=== PATIENT | male | born 1940 | race Caucasian/White ===

== ENCOUNTER 2020-04-23 19:42 | Observation (INO) ==
[2020-04-23] MEDS ORDERED: ALBUTEROL SULFATE/IPRATROPIUM 3 ML NEBU IH ONE ×4 (19:52→21:19)
[2020-04-23] MEDS ORDERED: DEXAMETHASONE SODIUM PHOSP/PF 10 MG/ML VIAL IV ONE (19:55)
--- NOTE | 2020-04-23 20:03 | ERNOTE ---
Dyspnea - Date Date of Service: 04/23/20 - General Presenting Symptoms: shortness of breath, wheezing Time Seen by Provider: 04/23/20 19:50 Source: patient, other - Patient is a poor historian and hard of hearing Exam Limitations: no limitations - Immun/Allergies/Home Medications Immunizations: IMMUNIZATION HX Immunizations Up to Date Yes History of Influenza Vaccine Yes Hx Pneumococcal Vaccination No Allergies/Adverse Reactions: Allergies hydrocodone bitartrate [From Vicodin] Allergy (Severe, Verified 04/23/20 20:38) Anaphylaxis tramadol Allergy (Verified 04/23/20 20:38) Home Medications: HOME MEDICATIONS Albuterol Sulfate [Proair Hfa] 2 inh INHALATION Q4H PRN 04/03/13 [Last Taken Unknown] Omeprazole [Prilosec] 40 mg PO DAILY #30 capsule. 04/04/13 [Last Taken Unknown ] Acetaminophen [Tylenol] 1,000 mg PO Q4H PRN 11/25/19 [Last Taken Unknown] Amlodipine Besylate 10 mg PO DAILY 11/25/19 [Last Taken Unknown] Atorvastatin Calcium 40 mg PO DAILY 11/25/19 [Last Taken Unknown] Escitalopram Oxalate 10 mg PO DAILY 11/25/19 [Last Taken Unknown] Finasteride [Proscar] 5 mg PO DAILY 11/25/19 [Last Taken Unknown] Fluticasone Propion/Salmeterol [Wixela 250-50 Inhub] 1 ea INHALATION BID 11/25/19 [Last Taken Unknown] Glimepiride 4 mg PO BID 11/25/19 [Last Taken Unknown] Tamsulosin HCl 0.4 mg PO DAILY 11/25/19 [Last Taken Unknown] Tiotropium [place] [Spiriva] 1 cap INHALATION DAILY 11/25/19 [Last Taken Unknown] sitaGLIPtin PHOSPHATE [Januvia] 100 mg PO DAILY 11/25/19 [Last Taken Unknown] Clopidogrel 75 mg PO DAILY 12/16/19 [Last Taken Unknown] Wixela 500-50 Inhub INH BID 12/16/19 [Last Taken Unknown] - History of Present Illness Narrative: 79-year-old male complaining of shortness of breath difficulty breathing is been ongoing for several months especially the past month it has been worse cough nonproductive the last 2 to 3 days he says he has had a fever with chills his is treated his called him off at night he has not been seen by his medical doctor He is very difficult to get a medical history from he is very hard of hearing on arrival his pulse ox was 88 to 90% Date (Duration): 04/23/20 Time (Timing): 19:58 Severity: moderate Treatment AIRPORT UTILITY WORKER: albuterol Initiating event: Reports: upper resp illness Frequency of episodes: Reports: frequent episodes Modifying Factors - (Improves): Reports: other - Unknown Modifying Factors (Worsens): Reports: other - Unknown Associated Symptoms-Dyspnea: Reports: fever/chills, sweating, cough, wheezing Review of Systems - Review of Systems Constitutional: Present: fever, chills EYE: Present: no symptoms reported ENT: Present: no symptoms reported, other - Hard of hearing Respiratory: Present: shortness of breath, cough, wheezing Cardiology: Present: no symptoms reported Gastrointestinal/Abdominal: Present: no symptoms reported Genitourinary: Present: no symptoms reported Musculoskeletal: Present: no symptoms reported Skin: Present: no symptoms reported Neurological: Present: no symptoms reported Endocrine: Present: no symptoms reported Hematologic/Lymphatic: Present: no symptoms reported Psych: Present: no symptoms reported All Other Systems: All systems neg except as marked Medical History (Last Reviewed 04/23/20 @ 20:00 by Raleigh Jacob MD) COPD (chronic obstructive pulmonary disease) HTN (hypertension) Heart attack Stroke Type 2 diabetes mellitus Surgical History: Surgical History (Last Reviewed 04/23/20 @ 20:00 by Raleigh Jacob MD) H/O hernia repair Family History: Family History (Last Reviewed 12/19/19 @ 13:14 by Lisseth Velez DNP) Father Myocardial infarction Mother Breast cancer Social History: (Last Updated 12/19/19 @ 13:14 by Lisseth Velez DNP) Social History: Marital status: current occupational status: retired Tobacco: Smoking Status: Former smoker Alcohol: alcohol intake: former Substance Use: substance use type: does not use Dietary Habits: caffeine: Yes Type: coffee, tea Exercise: Physical activity type: walking Physical Exam - Physical Exam General Appearance: Present: wd/wn, alert, moderate distress, obese Head Exam: Present: normal inspection Eye Exam: Normal inspection: bilateral Ears, Nose, Throat: Present: normal ENT inspection, dry mucous membranes Neck: Present: normal inspection Respiratory: Present: respiratory distress, rhonchi, wheezing Cardiovascular/Chest: Present: regular rate, rhythm Gastrointestinal/Abdominal: Present: normal bowel sounds, nontender Back Exam: Present: normal inspection, normal range of motion Extremity Exam: Present: normal inspection Neurological Exam: Present: alert, oriented Skin Exam: Present: normal color, warm/dry Lymphatic Exam: Present: no adenopathy Progress - Results and Orders Patient's Lab Results:: I have reviewed the patient's lab results. Results and Orders: Laboratory Tests 04/23/20 20:15 WBC 6.7 RBC 4.46 L Hgb 14.2 Hct 42.3 MCV 94.8 MCH 31.8 H Plt Count 149 L Neutrophils % 75.5 H Lymphocytes % 11.5 L Laboratory Tests 04/23/20 20:15 Lactic Acid, Venous 0.8 Laboratory Tests 04/23/20 04/23/20 04/23/20 18:24 20:15 20:15 Sodium 138 Potassium 4.8 H Chloride 104 Carbon Dioxide 24.6 Anion Gap 14.2 H BUN 37 H Creatinine 2.28 H D Est GFR (Non-Af Amer) 30 L D BUN/Creatinine Ratio 16.2 Random Glucose 184 H Lactic Acid, Venous 0.8 Calcium 8.6 Calcium Adj for Albumin 8.7 Total Bilirubin 0.4 AST 15 ALT 24 Alkaline Phosphatase 58 Troponin I 0.030 B-Natriuretic Peptide 552 Total Protein 6.4 Albumin 3.5 Influenza Type A Ag Negative Influenza Type B Ag Negative Laboratory Tests 04/23/20 20:58 pCO2 41.0 pO2 31.7 L* HCO3 22.7 Total CO2 24.0 Base Excess -2.6 L ABG pH 7.36 ABG O2 Sat (Measured) 58.5 L Laboratory Tests 04/23/20 18:23 SARS-CoV-2 (PCR) Not detected - Vital Signs Vital Signs: Vital Signs 04/23/20 19:42 Temperature 37.2 C Pulse Rate 81 Respiratory Rate 22 H Blood Pressure 159/82 H O2 Sat by Pulse Oximetry 89 L - EKG EKG #1 EKG: NSR EKG read: Interp. by la EKG Comments: EKG sinus rhythm with APCs right bundle branch block possible anterior myocardial infarct of indeterminate age no acute changes from 11/25/2019 - X-Ray X-Ray #1 X-Ray: chest Interpretation: Interp. by me X-ray Comments: No acute infiltrate or disease when compared to to prior chest x-ray - Progress/Reassessment Chief Complaint: Dyspnea Progress Note-Subjective: 04/23/20 21:15 recheck patient feeling much better also clearer that earlier, sats running anywhere from 91-94, his blood pressure was 1 42/74 we tried backing him off his oxygen to 0 L/min and he dropped his sats into the low 80s so we continued back at 2 L ,we will be giving him another treatment Plan - Plan Plan: Patient doing better but when O2 was taken off he dropped his sats in the mid 80s is decided to admit to the hospital observation Dr. Guerrero accepted and admitted Departure Clinical Impression: Asthma exacerbation in COPD - Departure Disposition: Short Term Hospital Inpatient Condition: Stable Additional Instructions: Admit to the hospital for observation Referrals: Manjinder Mojica MD [Primary Care Provider] -
[2020-04-23 20:33] LABS: Hematocrit 42.3 % (42.0-52.0); Hemoglobin 14.2 gm/dL (13.5-18.0); Mean Cell Volume 94.8 fl (78-100); Mean Corpuscular Hemoglobin 31.8 pg (27-31); Mean Corpuscular Hgb Conc 33.6 g/dl (32-36); Mean Platelet Volume 10.1 fl (8-11.3); Neutrophil % 75.5 % (42-75.0); Platelet Count 149 K/mm3 (150-450); Red Blood Count 4.46 M/mm3 (4.7-6.0); Red Cell Distribution Width 12.6 % (11.5-14.0); White Blood Count 6.7 K/mm3 (4.0-10.5)
[2020-04-23 20:47] LABS: Troponin I 0.03 ng/mL (0.00-0.10)
[2020-04-23 20:48] LABS: Albumin * 3.5 gm/dl (3.4-5.0); Anion Gap 14.2 mmol/L (6.8-13.8); BUN/Creatinine Ratio 16.2 (9.0-21.6); Bilirubin, Total 0.4 mg/dL (0.0-1.1); CRP 1.3 mg/dL (0.0-0.9); Ca. Corrected For Albumin 8.7 mg/dL (8.4-10.2); Calcium * 8.6 mg/dL (7.9-10.9); Carbon Dioxide 24.6 mmol/L (24-32.6); Potassium 4.8 mmol/L (3.4-4.6); Total Protein 6.4 gm/dL (6.2-8.2)
[2020-04-23] MEDS: ALBUTEROL SULFATE/IPRATROPIUM 3 ML NEBU IH SCH (22:43)
[2020-04-24] MEDS: ALBUTEROL SULFATE/IPRATROPIUM 3 ML NEBU IH SCH ×5 (02:27→18:22)
[2020-04-24] MEDS ORDERED: ACETAMINOPHEN 500 MG TABLET PO PRN (09:01)
[2020-04-24] MEDS ORDERED: sitaGLIPtin PHOSPHATE 50 MG TABLET PO SCH (09:15)
[2020-04-24] MEDS ORDERED: FLUTICASONE PROPION/SALMETEROL 14 PUFF DISK.W.DEV IH SCH (09:15)
[2020-04-24] MEDS ORDERED: CLOPIDOGREL BISULFATE 75 MG TABLET PO SCH (09:15)
[2020-04-24] MEDS ORDERED: FINASTERIDE 5 MG TABLET PO SCH (09:15)
[2020-04-24] MEDS ORDERED: ESCITALOPRAM OXALATE 10 MG TAB PO SCH (09:15)
[2020-04-24] MEDS ORDERED: amLODIPine BESYLATE 10 MG TABLET PO SCH (09:15)
[2020-04-24] MEDS ORDERED: ENOXAPARIN SODIUM 30 MG/0.3 ML SYRG SC SCH (09:15)
[2020-04-24] MEDS ORDERED: TIOTROPIUM BROMIDE 5 CAP INHALER IH SCH (09:15)
[2020-04-24] MEDS ORDERED: CLOPIDOGREL 75 MG PO SCH (09:15)
[2020-04-24] MEDS ORDERED: GLIMEPIRIDE 4 MG TABLET PO SCH (09:15)
[2020-04-24] MEDS ORDERED: guaiFENesin 100 MG/5 ML SYRUP PO PRN (09:21)
[2020-04-24] MEDS ORDERED: AZITHROMYCIN 250 MG TABLET PO ONE (09:31)
--- NOTE | 2020-04-24 09:31 | HP ---
Chief Complaint - Chief Complaint Date of Service: 04/24/20 Time of Service: 09:22 Chief Complaint: I have shortness of breath and cough. History of Present Illness: 79-year-old male with past medical history of type 2 diabetes, CAD w ith SC, CKD 3, hypertension, obesity, COPD, former smoker, was evaluated in the ER for worsening shortness of breath accompanied by cough that has been progressively getting worse over the past month. Patient reports he normally uses supplemental oxygen at 3 L at home and multiple inhalers prescribed by his doctor but he is breathing has not been improving with his usual treatments. Patient denies any fever or chills but says he has a horrible dry cough. 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 While in the ER labs revealed a positive d-dimer however the patient was negative for any tachycardia or chest pain, his EKG was also negative for any concerning findings. The patient has a history of chronic kidney disease which is known to cause an elevated d-dimer on labs so it is evident that this might be the explanation for the elevated d-dimer. We will continue to monitor him closely and keep him on telemetry. Medical History (Last Reviewed 04/23/20 @ 22:33 by Vicki Lin RN) COPD (chronic obstructive pulmonary disease) HTN (hypertension) Heart attack Stroke Type 2 diabetes mellitus Surgical History: Surgical History (Last Reviewed 04/23/20 @ 22:33 by Vicki Lin RN) H/O hernia repair Family History: Family History (Last Reviewed 04/23/20 @ 22:33 by Vicki Lin RN) Father Myocardial infarction Mother Breast cancer Social History: (Last Reviewed 04/23/20 @ 22:33 by Vicki Lin RN) Social History: Marital status: current occupational status: retired Tobacco: Smoking Status: Former smoker Alcohol: alcohol intake: former Substance Use: substance use type: does not use Dietary Habits: caffeine: Yes Type: coffee, tea Exercise: Physical activity type: walking Peds Patient Hx - Developmental: No Pertinent Hx Peds Patient Hx - Medical: No Pertinent Hx Peds Patient Hx - Cardiac/Respiratory: No Pertinent Hx Peds Patient Hx - Surgical: No Surgical History Patient History - Cancer: No Hx of Cancer Review Of Systems (GEN) - Review of Systems Generalized/Overall Review: Present: No Symptoms Reported EENTM: Present: No Symptoms Reported Respiratory: Present: Cough, Shortness of Breath Cardiac: Present: No Symptoms Reported Abdominal: Present: No Symptoms Reported Genitourinary: Present: No Symptoms Reported Musculoskeletal: Present: No Symptoms Reported Neurological: Present: No Symptoms Reported Skin: Present: No Symptoms Reported Endocrine: Present: No Symptoms Reported Immunizations: IMMUNIZATION HX Immunizations Up to Date Yes History of Influenza Vaccine Yes Hx Pneumococcal Vaccination No Allergies/Adverse Reactions: Allergies Allergy/AdvReac Type Severity Reaction Status Date / Time hydrocodone bitartrate Allergy Severe Anaphylaxis Verified 04/23/20 20:38 [From Vicodin] tramadol Allergy Verified 04/23/20 20:38 Home Medications: HOME MEDICATIONS Wixela 500-50 Inhub INH BID 12/16/19 [Last Taken Unknown] Albuterol Sulfate [Proventil Hfa] 6.7 gm INHALATION QID PRN 04/24/20 [Last Taken Unknown] Albuterol Sulfate [Ventolin HFA] 2 puff INHALATION QID 04/24/20 [Last Taken Unknown] Atorvastatin Calcium 40 mg PO DAILY 04/24/20 [Last Taken Unknown] Clopidogrel Bisulfate [Plavix] 75 mg PO DAILY 04/24/20 [Last Taken Unknown] Escitalopram Oxalate 10 mg PO DAILY 04/24/20 [Last Taken Unknown] Finasteride [Proscar] 5 mg PO DAILY 04/24/20 [Last Taken Unknown] Fluticasone Propion/Salmeterol [Wixela 500-50 Inhub] 1 puff INHALATION BID 04/24/20 [Last Taken Unknown] Glimepiride 4 mg PO BID 04/24/20 [Last Taken Unknown] Tamsulosin HCl 0.4 mg PO DAILY 04/24/20 [Last Taken Unknown] Tiotropium [place] [Spiriva Respimat 1.25 mcg/inhalation] 4 gm INHALATION DAILY 04/24/20 [Last Taken Unknown] Exam - Exam Vital Signs: Vital Signs - Last Taken Temp 36.2 C 04/24/20 06:00 Pulse 67 04/24/20 06:10 Resp 18 04/24/20 06:10 BP 170/83 H 04/24/20 07:10 Pulse Ox 93 04/24/20 08:10 Constitutional: Present: Alert, Oriented x3, Cooperative, Well developed, Well nourished, No distress, Elderly ENT Exam: Present: normal ENT inspection, hard of hearing Eye Exam: bilateral eye: normal inspection, PERRL, EOMI Neck: Present: non-tender, full range of motion, supple, normal inspection, trachea midline Back Exam: Present: normal inspection, no CVA tenderness, no vertebral tenderness Respiratory: Present: chest non-tender, lungs clear, no respiratory distress, no accessory muscle use, decreased breath sounds - Decreased lung sounds at bases bilaterally. Cardiovascular/Chest: Present: normal peripheral pulses, regular rate, rhythm, no chest tenderness, no edema, no gallop, no JVD, no murmur, no rub Peripheral Pulses: dorsalis-pedis (R): 3+, dorsalis-pedis (L): 3+ Abdomen: Present: Normal bowel sounds, soft, nontender, nondistended, no rebound tenderness, no hepatospenomegaly, no masses, obese /Rectal: Present: Exam deferred Extremity: Present: normal range of motion, non-tender, normal inspection, no pedal edema, no calf tenderness, normal capillary refill Skin Exam: Present: normal color, warm/dry, no cyanosis Lymphatic: Present: no adenopathy Neurologic: Present: 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, normal cerebellar test, no motor/sensory deficits, alert, normal mood/affect, oriented x 3 Appearance: Present: appropriate appearance, appropriate insight, neat, no memory impairment Eye contact: Present: cooperative, good eye contact, normal speech Thoughts: Present: normal thought pattern, no apparent hallucination Diagnostic Studies: Abnormal Lab Results 04/23/20 04/23/20 04/23/20 Range/Units 20:15 20:15 20:15 RBC 4.46 L (4.7-6.0) M/mm3 MCH 31.8 H (27-31) pg Plt Count 149 L (150-450) K/mm3 Immature Gran % (Auto) 0.60 H (0.001-0.429) % Immature Gran # (Auto) 0.04 H (0.000-0.0310) K/mm3 Neutrophils % 75.5 H (42-75.0) % Lymphocytes % 11.5 L (20-51) % Monocytes % 9.3 H (0.0-9) % Lymphocytes # 0.77 L (1.5-3.5) k/mm3 D-Dimer 1.38 H (0.19-0.49) ug/mL pO2 (83.0-108.0) mmHg Base Excess (-2.0-3.0) mmol/L ABG O2 Sat (Measured) (94.0-98.0) % Potassium 4.8 H (3.4-4.6) mmol/L Anion Gap 14.2 H (6.8-13.8) mmol/L BUN 37 H (6-23) mg/dL Creatinine 2.28 H D (0.4-1.4) mg/dL Est GFR (Non-Af Amer) 30 L D (60-130) mL/min Random Glucose 184 H (70-110) mg/dL C-Reactive Prot, Quant 1.3 H (0.0-0.9) mg/dL 04/23/20 Range/Units 20:58 RBC (4.7-6.0) M/mm3 MCH (27-31) pg Plt Count (150-450) K/mm3 Immature Gran % (Auto) (0.001-0.429) % Immature Gran # (Auto) (0.000-0.0310) K/mm3 Neutrophils % (42-75.0) % Lymphocytes % (20-51) % Monocytes % (0.0-9) % Lymphocytes # (1.5-3.5) k/mm3 D-Dimer (0.19-0.49) ug/mL pO2 31.7 L* (83.0-108.0) mmHg Base Excess -2.6 L (-2.0-3.0) mmol/L ABG O2 Sat (Measured) 58.5 L (94.0-98.0) % Potassium (3.4-4.6) mmol/L Anion Gap (6.8-13.8) mmol/L BUN (6-23) mg/dL Creatinine (0.4-1.4) mg/dL Est GFR (Non-Af Amer) (60-130) mL/min Random Glucose (70-110) mg/dL C-Reactive Prot, Quant (0.0-0.9) mg/dL Laboratory Results WBC 6.7 K/mm3 (4.0-10.5) 04/23/20 20:15 RBC 4.46 M/mm3 (4.7-6.0) L 04/23/20 20:15 Hgb 14.2 gm/dL (13.5-18.0) 04/23/20 20:15 Hct 42.3 % (42.0-52.0) 04/23/20 20:15 MCV 94.8 fl (78-100) 04/23/20 20:15 MCH 31.8 pg (27-31) H 04/23/20 20:15 MCHC 33.6 g/dl (32-36) 04/23/20 20:15 RDW 12.6 % (11.5-14.0) 04/23/20 20:15 Plt Count 149 K/mm3 (150-450) L 04/23/20 20:15 MPV 10.1 fl (8-11.3) 04/23/20 20:15 Immature Gran % (Auto) 0.60 % (0.001-0.429) H 04/23/20 20:15 Immature Gran # (Auto) 0.04 K/mm3 (0.000-0.0310) H 04/23/20 20:15 Neutrophils % 75.5 % (42-75.0) H 04/23/20 20:15 Lymphocytes % 11.5 % (20-51) L 04/23/20 20:15 Monocytes % 9.3 % (0.0-9) H 04/23/20 20:15 Eosinophils % 3.0 % (0.0-3.0) 04/23/20 20:15 Basophils % 0.1 % (0.0-1.0) 04/23/20 20:15 Nucleated RBC % 0.0 k/mm3 (0-1) 04/23/20 20:15 Neutrophils # 5.0 K/mm3 (1.3-6.0) 04/23/20 20:15 Lymphocytes # 0.77 k/mm3 (1.5-3.5) L 04/23/20 20:15 Monocytes # 0.6 k/mm3 (0.0-1.0) 04/23/20 20:15 Eosinophils # 0.2 k/mm3 (0.0-0.7) 04/23/20 20:15 Absolute Basophils 0.0 k/mm3 (0.0-0.1) 04/23/20 20:15 D-Dimer 1.38 ug/mL (0.19-0.49) H 04/23/20 20:15 pCO2 41.0 mmHg (35.0-48.0) 04/23/20 20:58 pO2 31.7 mmHg (83.0-108.0) L* 04/23/20 20:58 HCO3 22.7 mmol/L (21.0-28.0) 04/23/20 20:58 Total CO2 24.0 mmol/L (19.0-24.0) 04/23/20 20:58 Base Excess -2.6 mmol/L (-2.0-3.0) L 04/23/20 20:58 ABG pH 7.36 (7.35-7.45) 04/23/20 20:58 ABG O2 Sat (Measured) 58.5 % (94.0-98.0) L 04/23/20 20:58 Sodium 138 mmol/L (132-142) 04/23/20 20:15 Plasma Sodium 139 mmol/L (130-142) 04/23/20 20:15 Potassium 4.8 mmol/L (3.4-4.6) H 04/23/20 20:15 Chloride 104 mmol/L (97-106) 04/23/20 20:15 Carbon Dioxide 24.6 mmol/L (24-32.6) 04/23/20 20:15 Anion Gap 14.2 mmol/L (6.8-13.8) H 04/23/20 20:15 BUN 37 mg/dL (6-23) H 04/23/20 20:15 Creatinine 2.28 mg/dL (0.4-1.4) H D 04/23/20 20:15 Est GFR (Non-Af Amer) 30 mL/min (60-130) L D 04/23/20 20:15 BUN/Creatinine Ratio 16.2 (9.0-21.6) 04/23/20 20:15 Random Glucose 184 mg/dL (70-110) H 04/23/20 20:15 Lactic Acid, Venous 0.8 mmol/L (0.4-2.0) 04/23/20 20:15 Calcium 8.6 mg/dL (7.9-10.9) 04/23/20 20:15 Calcium Adj for Albumin 8.7 mg/dL (8.4-10.2) 04/23/20 20:15 Total Bilirubin 0.4 mg/dL (0.0-1.1) 04/23/20 20:15 AST 15 U/L (0-48) 04/23/20 20:15 ALT 24 U/L (19-67) 04/23/20 20:15 Alkaline Phosphatase 58 U/L (50-170) 04/23/20 20:15 Troponin I 0.030 ng/mL (0.00-0.10) 04/23/20 20:15 C-Reactive Prot, Quant 1.3 mg/dL (0.0-0.9) H 04/23/20 20:15 B-Natriuretic Peptide 552 pg/mL (5-650) 04/23/20 20:15 Total Protein 6.4 gm/dL (6.2-8.2) 04/23/20 20:15 Albumin 3.5 gm/dl (3.4-5.0) 04/23/20 20:15 Influenza Type A Ag Negative (NEGATIVE) 04/23/20 18:24 Influenza Type B Ag Negative (NEGATIVE) 04/23/20 18:24 SARS-CoV-2 (PCR) Not detected (NotDetected) 04/23/20 18:23 Assessment/Plan - Narrative Narrative: Patient was evaluated medical chart was reviewed and decision to admit for observation on the Medr unit for diagnosis of COPD exacerbation was made. After treating the patient with IV steroids and multiple breathing treatments [id number] he show significant improvement and reports less chest congestion. Currently his only complaint is a dry persistent cough, therefore an antitussive was ordered. We will keep the patient on telemetry and reevaluate him later this afternoon in order to determine if he is ready for discharge. - Assessment/Plan (1) COPD exacerbation Problem: Acute (2) Hypoxia Problem: Acute (3) Shortness of breath Problem: Acute (4) Diabetes 1.5, managed as type 2 Problem: Acute (5) HTN (hypertension) Problem: Chronic (6) Former cigarette smoker Problem: Chronic (7) CKD (chronic kidney disease) stage 3, GFR 30-59 ml/min Problem: Acute
[2020-04-24 09:55] LABS: Albumin * 3.5 gm/dl (3.4-5.0); Anion Gap 15.7 mmol/L (6.8-13.8); Bilirubin, Total 0.4 mg/dL (0.0-1.1); Ca. Corrected For Albumin 8.8 mg/dL (8.4-10.2); Calcium * 8.7 mg/dL (7.9-10.9); Potassium 5.7 mmol/L (3.4-4.6)
[2020-04-24] MEDS: METHYLPREDNISOLONE SOD SUCC/PF 125 MG/2 ML VIAL IV SCH ×2 (09:58→15:13)
[2020-04-24] MEDS: INSULIN REGULAR, HUMAN 100 UNITS/ML VIAL SC SCH ×3 (10:50→16:49)
[2020-04-24] MEDS ORDERED: NORMAL SALINE 500 ML IV ONE (13:30)
[2020-04-24] MEDS ORDERED: INSULIN REGULAR, HUMAN 100 UNITS/ML VIAL SC ONE (13:32)
[2020-04-24 14:23] LABS: Albumin * 3.5 gm/dl (3.4-5.0); Anion Gap 13.8 mmol/L (6.8-13.8); BUN/Creatinine Ratio 17.3 (9.0-21.6); Bilirubin, Total 0.4 mg/dL (0.0-1.1); Ca. Corrected For Albumin 9.2 mg/dL (8.4-10.2); Calcium * 9.1 mg/dL (7.9-10.9); Carbon Dioxide 24.2 mmol/L (24-32.6); Total Protein 6.6 gm/dL (6.2-8.2)
--- NOTE | 2020-04-24 16:02 | DS ---
(1) COPD exacerbation Problem: Resolved (2) Hypoxia Problem: Resolved (3) Shortness of breath Problem: Resolved (4) Diabetes 1.5, managed as type 2 Problem: Chronic (5) HTN (hypertension) Problem: Chronic (6) Former cigarette smoker Problem: Chronic (7) CKD (chronic kidney disease) stage 3, GFR 30-59 ml/min Problem: Chronic Date of Discharge:: 04/24/20 Hospital Course: 79-year-old male admitted for COPD exacerbation and hypoxia was evaluated at bedside and was found to be afebrile and in no acute distress. Patient has shown significant clinical improvement since admission, his shortness of breath has resolved and his blood gases have improved. He was treated with IV steroids, breathing treatments around the clock, and supplemental oxygen which has helped his condition significantly. During the hospitalization the patient's blood glucose levels increased but this can be explained by the IV steroids that he was treated with. So we will discharge patient with a oral steroid taper and with instructions to follow-up with his PCP as well as a hot box operator for his COPD. During morning rounds it was explained to patient that his COPD is progressing and his routine treatments might need to be optimized, I also recommended that he establish with a hot box operator for optimal treatment of his COPD. I will discharge the patient home with a nebulizer machine, additional breathing treatments in addition to the oral steroids, he is also to return to his baseline oxygen and increase only if necessary. Patient was also instructed to monitor his blood sugars carefully for ongoing hyperglycemia and to take his diabetes medication as prescribed. Procedures Performed: none Results and Findings: Lab Pending Results 04/23/20 18:23: SARS-CoV-2 (PCR) Not detected 04/23/20 18:24: Influenza Type A Ag Negative, Influenza Type B Ag Negative 04/23/20 20:15: WBC 6.7, RBC 4.46 L, Hgb 14.2, Hct 42.3, MCV 94.8, MCH 31.8 H, MCHC 33.6, RDW 12.6, Plt Count 149 L, MPV 10.1, Immature Gran % (Auto) 0.60 H, Immature Gran # (Auto) 0.04 H, Neutrophils % 75.5 H, Lymphocytes % 11.5 L, Monocytes % 9.3 H, Eosinophils % 3.0, Basophils % 0.1, Nucleated RBC % 0.0, Neutrophils # 5.0, Lymphocytes # 0.77 L, Monocytes # 0.6, Eosinophils # 0.2, Absolute Basophils 0.0 04/23/20 20:15: Sodium 138, Plasma Sodium 139, Potassium 4.8 H, Chloride 104, Carbon Dioxide 24.6, Anion Gap 14.2 H, BUN 37 H, Creatinine 2.28 H D, Est GFR (Non-Af Amer) 30 L D, BUN/Creatinine Ratio 16.2, Random Glucose 184 H, Calcium 8.6, Calcium Adj for Albumin 8.7, Total Bilirubin 0.4, AST 15, ALT 24, Alkaline Phosphatase 58, Troponin I 0.030, C-Reactive Prot, Quant 1.3 H, B-Natriuretic Peptide 552, Total Protein 6.4, Albumin 3.5 04/23/20 20:15: D-Dimer 1.38 H 04/23/20 20:15: Lactic Acid, Venous 0.8 04/23/20 20:58: pCO2 41.0, pO2 31.7 L*, HCO3 22.7, Total CO2 24.0, Base Excess - 2.6 L, ABG pH 7.36, ABG O2 Sat (Measured) 58.5 L 04/24/20 09:25: Sodium 136, Plasma Sodium 142, Potassium 5.7 H, Chloride 102, Carbon Dioxide 24.0, Anion Gap 15.7 H, BUN 39 H, Creatinine 2.44 H, Est GFR (Non-Af Amer) 27 L, BUN/Creatinine Ratio 16.0, Random Glucose 449 H D, Calcium 8.7, Calcium Adj for Albumin 8.8, Total Bilirubin 0.4, AST 10, ALT 21, Alkaline Phosphatase 62, Total Protein 6.0 L, Albumin 3.5 04/24/20 14:03: Sodium 134, Plasma Sodium 138, Potassium 5.0 H, Chloride 101, Carbon Dioxide 24.2, Anion Gap 13.8, BUN 43 H, Creatinine 2.49 H, Est GFR (Non- Af Amer) 27 L, BUN/Creatinine Ratio 17.3, Random Glucose 372 H, Calcium 9.1, Calcium Adj for Albumin 9.2, Total Bilirubin 0.4, AST 10, ALT 21, Alkaline Phosphatase 61, Total Protein 6.6, Albumin 3.5 Discharge Location: Home Disposition: Home self-care Condition: Stable Face to Face Encounter completed per [facility] Guidelines: No Discharge Activity: Activity as tolerated Discharge Diet: Consistent carbs Referrals: Sonali Cummings MD [Non Staff Physicians] - Additional Patient Instructions (free text): Pulmonology [facility] consult outpatient with on 08-07-2020 at 8:30 am. Prescriptions (Any new or edited meds): Albuterol Sulfate/Ipratropium [Duoneb 2.5-0.5MG/3ML Soln] 3 ml INHALATION QID #30 vial Transmission Status: Received by [facility] #[id number] Prednisone See Taper PO DAILY #5 tab Transmission Status: Received by [facility] #[id number] Azithromycin [Zithromax] 250 mg PO DAILY #4 tab Transmission Status: Received by [facility] #[id number] Complete Home Medications List: Complete Home Medication List: Wixela 500-50 Inhub INH BID 12/16/19 Albuterol Sulfate [Proventil Hfa] 6.7 gm INHALATION QID PRN 04/24/20 Albuterol Sulfate [Ventolin HFA] 2 puff INHALATION QID 04/24/20 Albuterol Sulfate/Ipratropium [Duoneb 2.5-0.5MG/3ML Soln] 3 ml INHALATION QID #30 vial 04/24/20 Atorvastatin Calcium 40 mg PO DAILY 04/24/20 Azithromycin [Zithromax] 250 mg PO DAILY #4 tab 04/24/20 Clopidogrel Bisulfate [Plavix] 75 mg PO DAILY 04/24/20 Escitalopram Oxalate 10 mg PO DAILY 04/24/20 Finasteride [Proscar] 5 mg PO DAILY 04/24/20 Fluticasone Propion/Salmeterol [Wixela 500-50 Inhub] 1 puff INHALATION BID 04/24/20 Glimepiride 4 mg PO BID 04/24/20 Prednisone See Taper PO DAILY #5 tab 04/24/20 Tamsulosin HCl 0.4 mg PO DAILY 04/24/20 Tiotropium [place] [Spiriva Respimat 1.25 mcg/inhalation] 4 gm INHALATION DAILY 04/24/20
[2020-04-24 17:24] VITALS: BP 139/74
[2020-04-24] MEDS ORDERED: TAMSULOSIN HCL 0.4 MG CAP.SR.24H PO SCH (18:00)
[2020-04-24] MEDS ORDERED: ROSUVASTATIN CALCIUM 20 MG TABLET PO SCH (21:00)
[2020-04-24] MEDS ORDERED: PANTOPRAZOLE SODIUM 20 MG TABLET.DR PO SCH (21:00)
[2020-04-25] MEDS ORDERED: AZITHROMYCIN 250 MG TABLET PO SCH (09:00)
== END 2020-04-24 18:55 | disposition home or self-care (01) ==
LOC: MS 19:42 → ER 19:42 → MS 22:10
PROVIDERS: ADMIT Family Medicine; ATTEND Family Medicine
DX: Z79.84 Long term (current) use of oral hypoglycemic drugs; N18.30 Chronic kidney disease, stage 3 unspecified; J44.1 Chronic obstructive pulmonary disease with (acute) exacerbation; Z87.891 Personal history of nicotine dependence; I12.9 Hypertensive chronic kidney disease with stage 1 through stage 4 chronic kidney disease, or unspecified chronic kidney disease; E13.22 Other specified diabetes mellitus with diabetic chronic kidney disease